=== PATIENT | male | born 1960 | race Caucasian/White ===

== ENCOUNTER 2017-04-03 05:06 | Inpatient (IN) | payer MEDICAID, OTHER ==
[2017-04-03] MEDS ORDERED: Alum Hydroxide/Mag Hydroxide 15 ML, Lidocaine 2% 15 ML PO ONE ×2 (05:44)
[2017-04-03] MEDS: Sodium Chloride 0.9% 1,000 ML IV SCH ×2 (06:07→14:16)
[2017-04-03] MEDS ORDERED: Morphine 10 MG/ML Syringe IVPUSH ONE (06:12)
[2017-04-03] MEDS ORDERED: Iopamidol 755 Mg/ML 100 ML Bottle IV ONE (06:32)
[2017-04-03] MEDS ORDERED: HYDROmorphone 2 MG/ML SDV IVPUSH ONE (06:50)
--- NOTE | 2017-04-03 08:23 | ER ---
DATE SEEN: 04/03/2017 TIME SEEN: 0500 hours. CHIEF COMPLAINT: Abdominal pain. HISTORY OF PRESENT ILLNESS: This is a 56-year-old male who presented with abdominal pain, started tonight, epigastric area, severe, constant. He admits to have been drinking last night. PAST MEDICAL HISTORY: Alcohol abuse, stroke, hypertension. SOCIAL HISTORY: Lives alone. ALLERGIES: None. PHYSICAL EXAMINATION: GENERAL: He is not in any cardiopulmonary distress. VITAL SIGNS: Temperature 97.5, pulse is 96. ENT: Negative. NECK: Supple. CHEST: Clear. ABDOMEN: Soft. Tenderness in the epigastrium was elicited. Bowel sounds are present. EXTREMITIES: No edema. LABORATORY DATA: Amylase 237. Sodium is 132, potassium is 3.3. Troponin, negative. EKG normal sinus rhythm. Alcohol is 0.05. CT of the abdomen and pelvis is pending. IMPRESSION: Acute abdominal pain. PLAN: A 1 L of normal saline was started. The patient was given 5 mg of IV morphine with no improvement. I ordered for Dilaudid [address] Barrera will take over. /[id number] AKILA/TRICIA
[2017-04-03] MEDS ORDERED: Ondansetron 4 MG/2 ML SDV IV PRN (09:13)
[2017-04-03] MEDS ORDERED: HYDROmorphone 2 MG/ML SDV IVPUSH PRN (09:13)
[2017-04-03] MEDS ORDERED: Sodium Chloride 0.9% 10 ML Syringe FLUSH PRN (09:13)
[2017-04-03] MEDS ORDERED: Lactated Ringers 1,000 ML IV SCH (09:15)
[2017-04-03] MEDS ORDERED: Magnesium Hydroxide 400 MG/5 ML Susp 30 ML Cup PO PRN (09:17)
[2017-04-03] MEDS ORDERED: FLU Vacc QS 2017-18 (36mos UP)/PF 60 MCG/0.5 ML Syringe IM ONE (10:30)
[2017-04-03] MEDS: Ferrous Sulfate 325 MG Tab PO SCH (11:31)
[2017-04-03] MEDS ORDERED: LORazepam 1 MG Tab PO SCH (11:45)
[2017-04-03] MEDS ORDERED: LORazepam 2 MG/ML MDV IV SCH (11:45)
--- NOTE | 2017-04-03 11:49 | PCM.HP ---
H&P History of Present Illness - General Date of Service: 04/03/17 Admit Problem/Dx: Admission Diagnosis/Problem Admission Diagnosis/Problem Pancreatitis Source of Information: Patient, Old Records, Provider History Limitations: Reports: No Limitations - History of Present Illness Initial Comments - Free Text/Narative: Patient is a 56-year-old male who woke up out of a sound sleep at 5 AM this morning with discomfort in the epigastrium. At first he thought it was heartburn and took Pepto-Bismol which was not helpful. Pain continued to worsen until finally he was so uncomfortable he presented to the emergency department. On evaluation he was found to have an elevated amylase, CT scan of the abdomen showed acute pancreatitis. Patient was admitted for fluids, pain control, and nothing by mouth status. 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 He did not go through any withdrawal. He tells me he had no shakes and no sweats. He does have a history of alcohol abuse has been through treatment twice. Because he knew he was working this morning, he had 2 beers last night at 10:00 to help him go to sleep and that was the first alcoholic beverages he had this week. Blood alcohol at 0400 this morning was 0.05. Onset of Symptoms: Reports: Today, Sudden Quality: Reports: Sharp, Stabbing Severity: Moderate Improves with: Reports: None Worsens with: Reports: Movement Associated Symptoms: Reports: Nausea/Vomiting Upper Abdominal Pain Score (Numeric/FACES): 4 - Related Data Allergies/Adverse Reactions: Allergies Allergy/AdvReac Type Severity Reaction Status Date / Time No Known Allergies Allergy Verified 04/03/17 09:22 Home Medications: Home Meds Lisinopril 40 mg PO DAILY 05/29/14 [History] atorvaSTATin [Lipitor] 20 mg PO BEDTIME 11/19/14 [History] Pantoprazole [ProTONIX] 40 mg PO 0600 #30 06/20/15 [Rx] Ferrous Sulfate 325 mg PO DAILY 04/03/17 [History] Past Medical History HEENT History: Reports: Cataract, Impaired Vision Cardiovascular History: Reports: High Cholesterol, Hypertension Respiratory History: Reports: COPD, SOB Gastrointestinal History: Reports: GERD, GI Bleed, Pancreatitis, Other (See Below) Other Gastrointestinal History: hx feeding tube from past CVA, is gone now. Neurological History: Reports: CVA, Other (See Below) Other Neuro History: CVA in 2010 Psychiatric History: Reports: Addiction, Other (See Below) Other Psychiatric History: ETOH addiction, has been in tx x 2. - Infectious Disease History Infectious Disease History: Reports: Chicken Pox, Measles, Mumps - Past Surgical History HEENT Surgical History: Reports: Cataract Surgery Cardiovascular Surgical History: Reports: None GI Surgical History: Reports: Colonoscopy, Hernia, Abdominal, Hernia, Inguinal Social & Family History - Family History GI: Reports: Other (See Below) (Mother and father both healthy into their 80s. from Parkinson's and Alzheimer's disease respectively. 3 healthy sisters.) - Tobacco Use Smoking Status *Q: Former Smoker Years of Tobacco use: 40 Used Tobacco, but Quit: Yes Month Tobacco Last Used: 2011 Second Hand Smoke Exposure: No - Caffeine Use Caffeine Use: Reports: Coffee - Alcohol Use Days Per Week of Alcohol Use: 7 Number of Drinks Per Day: 5 Total Drinks Per Week: 35 - Recreational Drug Use Recreational Drug Use: No H&P Review of Systems - Review of Systems: Review Of Systems: See Below General: Reports: No Symptoms HEENT: Reports: No Symptoms Pulmonary: Reports: No Symptoms Cardiovascular: Reports: No Symptoms Gastrointestinal: Reports: No Symptoms (Prior to this attack. Current symptoms as per history of present illness) Genitourinary: Reports: No Symptoms Musculoskeletal: Reports: No Symptoms Skin: Reports: No Symptoms Psychiatric: Reports: No Symptoms (Denies previous symptoms of alcohol withdrawal when he stops drinking.) Neurological: Reports: Trouble Speaking (Continues to have difficulty with speech secondary to his previous stroke.) Hematologic/Lymphatic: Reports: No Symptoms Immunologic: Reports: No Symptoms Exam - Exam Exam: See Below - Vital Signs Vital Signs: Last Vital Signs Temp 36.4 C 04/03/17 05:37 Pulse 96 04/03/17 05:37 Resp 18 04/03/17 09:00 BP 161/93 H 04/03/17 09:00 Pulse Ox 94 L 04/03/17 09:00 Weight: 94.438 kg - Exam General: Alert, Oriented, Cooperative HEENT: PERRLA, Mucosa Moist & [place] Neck: Supple Lungs: Clear to Auscultation, Normal Respiratory Effort Cardiovascular: Regular Rate, Regular Rhythm GI/Abdominal Exam: Soft, Tender (Significantly tender in the epigastrium, minimally tender elsewhere.), Abnormal Bowel Sounds (Hypoactive.) Back Exam: Normal Inspection Extremities: Normal Inspection, Normal Range of Motion (Patient notes left arm is still slightly not as easy to control as the right but on exam he appears very symmetric.) - Patient Data Result Diagrams: 04/03/17 05:50 04/03/17 05:50 *Q Meaningful Use (ADM) - VTE *Q VTE Criteria *Q: - Stroke *Q Stroke Criteria *Q: - AMI *Q AMI Criteria *Q: - Problem List (1) Acute alcoholic pancreatitis SNOMED Code(s): 460038333 ICD Code: K85.20 - ALCOHOL INDUCED ACUTE PANCREATITIS WITHOUT NECROSIS OR INFCT Status: Acute Current Visit: Yes Problem Details: [place] II score is 2, one for age and one for hypokalemia. Nothing by mouth, fluids, pain management. Monitor labs and status. (2) Alcohol abuse SNOMED Code(s): 36379906 ICD Code: F10.10 - ALCOHOL ABUSE, UNCOMPLICATED Status: Acute Current Visit: Yes Problem Details: Alcohol withdrawal protocol. Patient denies recent drinking history other than 2 beers last evening. He notes that all he's had for a week. We'll continue to monitor. If patient's tachycardia/ hypertension become elevated sufficiently to warrant treatment, would suggest using a low-dose beta allan as first line. (3) Elevated LFTs SNOMED Code(s): 780562657 ICD Code: R79.89 - OTHER SPECIFIED ABNORMAL FINDINGS OF BLOOD CHEMISTRY Status: Acute Current Visit: Yes Problem Details: Could be related to alcohol abuse. May be result of pancreatic inflammation. Cannot rule out the possibility of obstructive etiology. Will recheck tomorrow. (4) Hyponatremia SNOMED Code(s): 35572541 ICD Code: E87.1 - HYPO-OSMOLALITY AND HYPONATREMIA Status: Acute Current Visit: Yes Problem Details: Mild. Recheck tomorrow. (5) Hypokalemia SNOMED Code(s): 20715283 ICD Code: E87.6 - HYPOKALEMIA Status: Acute Current Visit: Yes Problem Details: Mild. Will use IV fluids containing potassium and recheck tomorrow. (6) DVT prophylaxis SNOMED Code(s): 506077247 ICD Code: [id number] - Status: Acute Current Visit: Yes Problem Details: Lovenox. Problem List Initiated/Reviewed/Updated: Yes Orders Last 24hrs: Active Orders 24 hr Category Date Time Status Blood Glucose Check, Bedside [RC] QIDACANDBED Care 04/03/17 09:13 Active Notify Provider [RC] PRN Care 04/03/17 11:41 Ordered Oxygen Therapy [RC] PRN Care 04/03/17 09:13 Active Oxygen Therapy [RC] PRN Care 04/03/17 09:17 Active VTE/DVT Education [RC] Per Unit Routine Care 04/03/17 09:13 Active VTE/DVT Education [RC] Per Unit Routine Care 04/03/17 09:17 Active Clear Liquid Diet [DIET] Diet 04/03/17 Breakfast Ordered CBC WITH AUTO DIFF [HEME] AM Lab 04/04/17 05:11 Ordered COMPREHENSIVE METABOLIC PN,CMP [CHEM] AM Lab 04/04/17 05:11 Ordered TROPONIN I [CHEM] Routine Lab 04/03/17 12:00 Ordered Enoxaparin [Lovenox] Med 04/03/17 09:15 Active 40 mg SUBCUT DAILY Ferrous Sulfate Med 04/03/17 09:30 Active 325 mg PO DAILY Folic Acid Med 04/04/17 09:00 Ordered 1 mg PO DAILY HYDROmorphone [Dilaudid] Med 04/03/17 09:13 Active 0.5 mg IVPUSH Q2H PRN LORazepam [Ativan] Med 04/03/17 11:45 Ordered See Protocol IV ASDIRECTED LORazepam [Ativan] Med 04/03/17 11:45 Ordered See Protocol PO ASDIRECTED Lactated Ringers [Ringers, Lactated] 1,000 ml Med 04/03/17 09:15 Active IV ASDIRECTED Lisinopril [Prinivil] Med 04/03/17 09:30 Active 40 mg PO DAILY Magnesium Hydroxide [Milk of Magnesia] Med 04/03/17 09:17 Active 30 ml PO Q12H PRN Multivitamins [Tab-A-Mei] Med 04/04/17 09:00 Ordered 1 tab PO DAILY Ondansetron [Zofran] Med 04/03/17 09:13 Active 4 mg IV Q4H PRN Pantoprazole [ProTONIX] Med 04/04/17 06:00 Active 40 mg PO 0600 Sodium Chloride 0.9% [Saline Flush] Med 04/03/17 09:13 Active 10 ml FLUSH ASDIRECTED PRN Thiamine [Vitamin B-1] 100 mg Med 04/04/17 09:00 Ordered Sodium Chloride 0.9% [Normal Saline] 50 ml IV DAILY atorvaSTATin [Lipitor] Med 04/03/17 21:00 Active 20 mg PO BEDTIME Peripheral IV Insertion Adult [OM.PC] Routine Oth 04/03/17 09:13 Ordered Resuscitation Status Routine Resus Stat 04/03/17 09:17 Ordered Medication Orders Atorvastatin Calcium (Lipitor) 20 mg PO BEDTIME [facility] Enoxaparin Sodium (Lovenox) 40 mg SUBCUT DAILY [facility] Ferrous Sulfate (Ferrous Sulfate) 325 mg PO DAILY [facility] Last Admin: 04/03/17 11:31 Dose: 325 mg Folic Acid (Folic Acid) 1 mg PO DAILY [facility] Hydromorphone HCl (Dilaudid) 0.5 mg IVPUSH Q2H PRN PRN Reason: Pain (severe 7-10) Last Admin: 04/03/17 11:31 Dose: 0.5 mg Sodium Chloride (Normal Saline) 1,000 mls @ 125 mls/hr IV ASDIRECTED [facility] Last Admin: 04/03/17 06:07 Dose: 125 mls/hr Lactated Ringer's (Ringers, Lactated) 1,000 mls @ 125 mls/hr IV ASDIRECTED [facility] Thiamine HCl 100 mg/ Sodium (Chloride) 51 mls @ 100 mls/hr IV DAILY [facility] Lisinopril (Prinivil) 40 mg PO DAILY [facility] Lorazepam (Ativan) 0 mg IV ASDIRECTED [facility] PRN Reason: Protocol Lorazepam (Ativan) 0 mg PO ASDIRECTED [facility] PRN Reason: Protocol Magnesium Hydroxide (Milk Of Magnesia) 30 ml PO Q12H PRN PRN Reason: Constipation Multivitamins/Minerals/Vitamin C (Tab-A-Mei) 1 tab PO DAILY [facility] Ondansetron HCl (Zofran) 4 mg IV Q4H PRN PRN Reason: Nausea/Vomiting Pantoprazole Sodium (Protonix) 40 mg PO 0600 [facility] Sodium Chloride (Saline Flush) 10 ml FLUSH ASDIRECTED PRN PRN Reason: Keep Vein Open Assessment/Plan Comment:: CODE STATUS discussed with the patient. He is a full code. If his heart were to stop beating. He stopped breathing, he would want every effort to resuscitate him.
[2017-04-03] MEDS ORDERED: Enoxaparin 60 MG/0.6 ML Syringe ONE (12:27)
[2017-04-03] MEDS ORDERED: Lisinopril 20 MG Tab ONE (12:28)
[2017-04-03] MEDS: Enoxaparin 40 MG/0.4 ML Syringe SUBCUT SCH (12:45)
[2017-04-03] MEDS: NS + KCl 20mEq/L 1,000 ML IV SCH (14:56)
--- NOTE | 2017-04-03 15:22 | PCM.PN ---
- General Info Date of Service: 04/03/17 Subjective Update: The patient is a 56-year-old male currently on hospital day #1 for acute pancreatitis secondary to alcohol abuse. At approximately 1434 the patient started to have left arm shaking and asked the nurse to come into the room. She came in and started to get vital signs while his arm was tremoring and this quickly proceeded into a full tonic-clonic seizure. I was called immediately with the rapid response team and we provided supportive care with blow-by oxygen while 1 mg Ativan was drawn up and given. Within 30 seconds of getting the Ativan the seizure had broken. The seizure lasted approximately 3 minutes. Oxygen saturations dipped as low as 80% during the seizure prior to oxygen supplementation but after oxygen supplementation sats were 100%. Following the seizure, the patient was disoriented but arousable. He was able to answer questions. Within 20 minutes he had regained orientation to person, place and time. Vital signs are stable although blood pressure and pulse remained elevated with heart rate in the 140s and systolic blood pressure in the 160s to 170s. Patient was transferred to ICU and placed on telemetry monitoring. On physical exam, the patient was alert, awake and in no distress. He was a little anxious. Head is atraumatic, normocephalic. Pupils are equally round and reactive. Tongue shows no lacerations. Lungs are clear to auscultation with coarse breath sounds but no wheezes rhonchi or rales. Abdomen is soft naphthalene still operator in the epigastrium, nondistended. - Patient Data Vitals - Most Recent: Last Vital Signs Temp 36.4 C 04/03/17 05:37 Pulse 96 04/03/17 05:37 Resp 18 04/03/17 09:00 BP 164/100 H 04/03/17 12:40 Pulse Ox 99 04/03/17 15:05 Weight - Most Recent: 94.438 kg I&O - Last 24 Hours: Intake & Output 04/03/17 04/03/17 04/03/17 06:59 14:59 22:59 Intake Total 1056 Balance 1056 Med Orders - Current: Current Medications Atorvastatin Calcium (Lipitor) 20 mg PO BEDTIME [facility] Enoxaparin Sodium (Lovenox) 40 mg SUBCUT DAILY [facility] Last Admin: 04/03/17 12:45 Dose: Not Given Ferrous Sulfate (Ferrous Sulfate) 325 mg PO DAILY [facility] Last Admin: 04/03/17 11:31 Dose: 325 mg Folic Acid (Folic Acid) 1 mg PO DAILY [facility] Hydromorphone HCl (Dilaudid) 0.5 mg IVPUSH Q2H PRN PRN Reason: Pain (severe 7-10) Last Admin: 04/03/17 11:31 Dose: 0.5 mg Sodium Chloride (Normal Saline) 1,000 mls @ 125 mls/hr IV ASDIRECTED [facility] Last Admin: 04/03/17 14:16 Dose: 125 mls/hr Lactated Ringer's (Ringers, Lactated) 1,000 mls @ 125 mls/hr IV ASDIRECTED [facility] Thiamine HCl 100 mg/ Sodium (Chloride) 51 mls @ 100 mls/hr IV DAILY [facility] Potassium Chloride/Sodium Chloride (Normal Saline With 20 Meq Kcl) 1,000 mls @ 75 mls/hr IV ASDIRECTED [facility] Last Admin: 04/03/17 14:56 Dose: 75 mls/hr Lisinopril (Prinivil) 40 mg PO DAILY [facility] Last Admin: 04/03/17 12:45 Dose: Not Given Lorazepam (Ativan) 0 mg IV ASDIRECTED [facility] PRN Reason: Protocol Lorazepam (Ativan) 0 mg PO ASDIRECTED [facility] PRN Reason: Protocol Magnesium Hydroxide (Milk Of Magnesia) 30 ml PO Q12H PRN PRN Reason: Constipation Multivitamins/Minerals/Vitamin C (Tab-A-Mei) 1 tab PO DAILY [facility] Ondansetron HCl (Zofran) 4 mg IV Q4H PRN PRN Reason: Nausea/Vomiting Pantoprazole Sodium (Protonix) 40 mg PO 0600 [facility] Sodium Chloride (Saline Flush) 10 ml FLUSH ASDIRECTED PRN PRN Reason: Keep Vein Open Discontinued Medications Al Hydroxide/Mg Hydroxide 15 (ml/ Lidocaine HCl 15 ml) 0 ml PO ONETIME ONE Stop: 04/03/17 05:45 Last Admin: 04/03/17 06:03 Dose: 30 ml Enoxaparin Sodium (Lovenox) Confirm Administered Dose 60 mg .ROUTE .STK-MED ONE Stop: 04/03/17 12:28 Last Admin: 04/03/17 12:39 Dose: 40 mg Hydromorphone HCl (Dilaudid) 2 mg IVPUSH ONETIME ONE Stop: 04/03/17 06:51 Last Admin: 04/03/17 07:15 Dose: 2 mg Influenza Virus Vaccine (Pharmacy To Dose - Influenza Vaccine) 1 each IM ONETIME ONE Stop: 04/03/17 10:24 Influenza Virus Vaccine (Fluzone Quad [id number]) 60 mcg IM .ONCE ONE Stop: 04/03/17 10:31 Last Admin: 04/03/17 11:32 Dose: 60 mcg Iopamidol (Isovue-370 (76%)) 100 ml IV . DIRECTED ONE Stop: 04/03/17 06:33 Last Admin: 04/03/17 06:47 Dose: 100 ml Lisinopril (Prinivil) Confirm Administered Dose 40 mg .ROUTE .STK-MED ONE Stop: 04/03/17 12:29 Last Admin: 04/03/17 12:40 Dose: 40 mg Morphine Sulfate (Morphine) 5 mg IVPUSH ONETIME ONE Stop: 04/03/17 06:13 Last Admin: 04/03/17 06:16 Dose: 5 mg - Problem List & Annotations (1) Alcohol withdrawal seizure SNOMED Code(s): 194241702 Code(s): F10.239 - ALCOHOL DEPENDENCE WITH WITHDRAWAL, UNSPECIFIED; R56.9 - UNSPECIFIED CONVULSIONS Status: Acute Current Visit: Yes Annotation/ Comment:: The patient' CIWA was quite low, his increase in blood pressure and pulse were the main indicators of withdrawal. Patient will be given another milligram of Ativan and 1 hour and then we'll monitor closely. Likely will premedicate over the next 24 hours with Ativan every 4 hours as long as patient is arousable and maintaining his respiratory status. Patient has been placed on telemetry, is in the ICU being monitored closely, seizure precautions, will watch closely for respiratory issues related to potential aspiration during seizure activity. (2) Acute alcoholic pancreatitis SNOMED Code(s): 877641100 Code(s): K85.20 - ALCOHOL INDUCED ACUTE PANCREATITIS WITHOUT NECROSIS OR INFCT Status: Acute Current Visit: Yes Annotation/Comment:: [place] II score is 2, one for age and one for hypokalemia. Nothing by mouth, fluids, pain management. Monitor labs and status. (3) Alcohol abuse SNOMED Code(s): 39363253 Code(s): F10.10 - ALCOHOL ABUSE, UNCOMPLICATED Status: Acute Current Visit: Yes Annotation/Comment:: Patient's blood alcohol this time is likely 0 given the elapsed time since his last alcohol level at 4 AM. We'll monitor closely for evidence of delirium tremens which is more common in patients who' ve had alcohol withdrawal seizures. Patient currently in ICU, seizure precautions. (4) Elevated LFTs SNOMED Code(s): 720803425 Code(s): R79.89 - OTHER SPECIFIED ABNORMAL FINDINGS OF BLOOD CHEMISTRY Status: Acute Current Visit: Yes Annotation/Comment:: Could be related to alcohol abuse. May be result of pancreatic inflammation. Cannot rule out the possibility of obstructive etiology. Will recheck tomorrow. (5) Hyponatremia SNOMED Code(s): 52620394 Code(s): E87.1 - HYPO-OSMOLALITY AND HYPONATREMIA Status: Acute Current Visit: Yes Annotation/Comment:: Mild. Recheck tomorrow. (6) Hypokalemia SNOMED Code(s): 74692969 Code(s): E87.6 - HYPOKALEMIA Status: Acute Current Visit: Yes Annotation/Comment:: Mild. Will use IV fluids containing potassium and recheck tomorrow. (7) DVT prophylaxis SNOMED Code(s): 790462363 Code(s): KNQ3394 - Status: Acute Current Visit: Yes Annotation/Comment :: Lovenox. - Problem List Review Problem List Initiated/Reviewed/Updated: Yes - My Orders Last 24 Hours: My Active Orders 04/03/17 11:41 Notify Provider [RC] PRN 04/03/17 11:45 LORazepam [Ativan] See Protocol IV ASDIRECTED LORazepam [Ativan] See Protocol PO ASDIRECTED 04/03/17 14:00 NS + KCl 20mEq/L [Normal Saline with 20 mEq KCl] 1,000 ml IV ASDIRECTED 04/03/17 14:54 Patient Status Manage Transfer [TRANSFER] Routine 04/03/17 14:58 Telemetry Monitoring [Cardiac Monitoring] [RC] .As Directed 04/04/17 09:00 Folic Acid 1 mg PO DAILY Multivitamins [Tab-A-Mei] 1 tab PO DAILY Thiamine [Vitamin B-1] 100 mg Sodium Chloride 0.9% [Normal Saline] 50 ml IV DAILY - Plan Plan:: CODE STATUS discussed with the patient. He is a full code. If his heart were to stop beating. He stopped breathing, he would want every effort to resuscitate him.
[2017-04-03] MEDS ORDERED: Folic Acid 1 MG Tab PO ONE (15:42)
[2017-04-03] MEDS ORDERED: Pantoprazole 40 MG Vial IVPUSH ONE (15:43)
[2017-04-03] MEDS ORDERED: Multivitamin Tab PO ONE (15:45)
[2017-04-03] MEDS ORDERED: LORazepam 2 MG/ML MDV IVPUSH STA (16:00)
[2017-04-03] MEDS: Thiamine 100 MG in Sodium Chloride 0.9% 50 ML IV SCH (16:12)
[2017-04-03] MEDS ORDERED: atorvaSTATin 20 MG Tab PO SCH (21:00)
[2017-04-04] MEDS: NS + KCl 20mEq/L 1,000 ML IV SCH (04:38)
[2017-04-04] MEDS: Pantoprazole 40 MG Tab.CR PO SCH (05:03)
[2017-04-04] MEDS ORDERED: LORazepam 2 MG/ML MDV IVPUSH ONE (07:21)
--- NOTE | 2017-04-04 07:36 | PCM.PN ---
- General Info Date of Service: 04/04/17 Subjective Update: The patient is a 56-year-old male currently on hospital day #2, admitted for alcoholic pancreatitis and had a seizure secondary to alcohol withdrawal yesterday about 1400. No Ativan overnight. Vital signs have been improved with blood pressure in the 150s systolic and heart rate in the 90s. Abdominal pain is much improved. Patient is awake and oriented this morning. No nausea, no vomiting, no chest pain, no shortness of breath. Has been up to the bathroom without difficulty. Functional Status: Reports: Pain Controlled - Patient Data Vitals - Most Recent: Last Vital Signs Temp 36.4 C 04/04/17 04:00 Pulse 96 04/04/17 04:59 Resp 18 04/04/17 04:00 BP 156/99 H 04/04/17 04:00 Pulse Ox 91 L 04/04/17 04:00 Weight - Most Recent: 94.438 kg I&O - Last 24 Hours: Intake & Output 04/03/17 04/04/17 04/04/17 22:59 06:59 14:59 Intake Total 441 538 Output Total 225 Balance 216 538 Lab Results Last 24 Hours: Laboratory Results - last 24 hr 04/03/17 04/03/17 04/03/17 Range/Units 11:23 17:44 20:00 POC Glucose 130 H 150 H 159 H (80-116) mg/dL 04/04/17 Range/Units 05:06 POC Glucose 126 H (80-116) mg/dL Magnesium was normal. Potassium was normal at 2.6. Patient's phosphorus was low at 2.2. White count elevated at 12,000. Creatinine normal. Med Orders - Current: Current Medications Enoxaparin Sodium (Lovenox) 40 mg SUBCUT DAILY [facility] Last Admin: 04/03/17 12:45 Dose: Not Given Ferrous Sulfate (Ferrous Sulfate) 325 mg PO DAILY [facility] Last Admin: 04/03/17 11:31 Dose: 325 mg Folic Acid (Folic Acid) 1 mg PO DAILY [facility] Hydromorphone HCl (Dilaudid) 0.5 mg IVPUSH Q2H PRN PRN Reason: Pain (severe 7-10) Last Admin: 04/03/17 11:31 Dose: 0.5 mg Sodium Chloride (Normal Saline) 1,000 mls @ 125 mls/hr IV ASDIRECTED [facility] Last Admin: 04/03/17 14:16 Dose: 125 mls/hr Potassium Chloride/Sodium Chloride (Normal Saline With 20 Meq Kcl) 1,000 mls @ 75 mls/hr IV ASDIRECTED [facility] Last Admin: 04/04/17 04:38 Dose: 75 mls/hr Thiamine HCl 100 mg/ Sodium (Chloride) 51 mls @ 100 mls/hr IV DAILY [facility] Last Admin: 04/03/17 16:12 Dose: 100 mls/hr Lisinopril (Prinivil) 40 mg PO DAILY [facility] Last Admin: 04/03/17 12:45 Dose: Not Given Lorazepam (Ativan) 0 mg IV ASDIRECTED [facility] PRN Reason: Protocol Lorazepam (Ativan) 0 mg PO ASDIRECTED [facility] PRN Reason: Protocol Last Admin: 04/03/17 17:37 Dose: 1 mg Magnesium Hydroxide (Milk Of Magnesia) 30 ml PO Q12H PRN PRN Reason: Constipation Multivitamins/Minerals/Vitamin C (Tab-A-Mei) 1 tab PO DAILY [facility] Ondansetron HCl (Zofran) 4 mg IV Q4H PRN PRN Reason: Nausea/Vomiting Last Admin: 04/03/17 17:51 Dose: 4 mg Pantoprazole Sodium (Protonix) 40 mg PO 0600 [facility] Last Admin: 04/04/17 05:03 Dose: 40 mg Sodium Chloride (Saline Flush) 10 ml FLUSH ASDIRECTED PRN PRN Reason: Keep Vein Open Discontinued Medications Atorvastatin Calcium (Lipitor) 20 mg PO BEDTIME [facility] Al Hydroxide/Mg Hydroxide 15 (ml/ Lidocaine HCl 15 ml) 0 ml PO ONETIME ONE Stop: 04/03/17 05:45 Last Admin: 04/03/17 06:03 Dose: 30 ml Enoxaparin Sodium (Lovenox) Confirm Administered Dose 60 mg .ROUTE .STK-MED ONE Stop: 04/03/17 12:28 Last Admin: 04/03/17 12:39 Dose: 40 mg Folic Acid (Folic Acid) 1 mg PO ONETIME ONE Stop: 04/03/17 15:43 Last Admin: 04/03/17 16:11 Dose: 1 mg Hydromorphone HCl (Dilaudid) 2 mg IVPUSH ONETIME ONE Stop: 04/03/17 06:51 Last Admin: 04/03/17 07:15 Dose: 2 mg Lactated Ringer's (Ringers, Lactated) 1,000 mls @ 125 mls/hr IV ASDIRECTED [facility] Thiamine HCl 100 mg/ Sodium (Chloride) 51 mls @ 100 mls/hr IV DAILY [facility] Influenza Virus Vaccine (Pharmacy To Dose - Influenza Vaccine) 1 each IM ONETIME ONE Stop: 04/03/17 10:24 Influenza Virus Vaccine (Fluzone Quad [id number]) 60 mcg IM .ONCE ONE Stop: 04/03/17 10:31 Last Admin: 04/03/17 11:32 Dose: 60 mcg Iopamidol (Isovue-370 (76%)) 100 ml IV . DIRECTED ONE Stop: 04/03/17 06:33 Last Admin: 04/03/17 06:47 Dose: 100 ml Lisinopril (Prinivil) Confirm Administered Dose 40 mg .ROUTE .STK-MED ONE Stop: 04/03/17 12:29 Last Admin: 04/03/17 12:40 Dose: 40 mg Lorazepam (Ativan) 1 mg IVPUSH NOW STA Stop: 04/03/17 16:01 Last Admin: 04/03/17 16:30 Dose: 1 mg Lorazepam (Ativan) 0.5 mg IVPUSH ONETIME ONE Stop: 04/04/17 07:22 Morphine Sulfate (Morphine) 5 mg IVPUSH ONETIME ONE Stop: 04/03/17 06:13 Last Admin: 04/03/17 06:16 Dose: 5 mg Multivitamins/Minerals/Vitamin C (Tab-A-Mei) 1 tab PO ONETIME ONE Stop: 04/03/17 15:46 Last Admin: 04/03/17 16:29 Dose: 1 tab Pantoprazole Sodium (Protonix Iv) 40 mg IVPUSH ONETIME ONE Stop: 04/03/17 15:44 Last Admin: 04/03/17 16:11 Dose: 40 mg - Exam Quality Assessment: DVT Prophylaxis General: Alert, Oriented, Cooperative HEENT: Pupils Equal, Pupils Reactive Neck: Supple Lungs: Clear to Auscultation, Normal Respiratory Effort Cardiovascular: Regular Rate, Regular Rhythm, No Murmurs GI/Abdominal Exam: Normal Bowel Sounds, Soft, Tender (Tender in the epigastrium but much less so than yesterday.) Back Exam: Normal Inspection Extremities: Normal Inspection, Normal Range of Motion, No Pedal Edema Skin: Warm, Dry, Intact Neurological: No New Focal Deficit Psy/Mental Status: Alert, Normal Mood - Problem List & Annotations (1) Alcohol withdrawal seizure SNOMED Code(s): 593448429 Code(s): F10.239 - ALCOHOL DEPENDENCE WITH WITHDRAWAL, UNSPECIFIED; R56.9 - UNSPECIFIED CONVULSIONS Status: Acute Current Visit: Yes Annotation/ Comment:: No further seizure activity. Patient appears quite stable this morning. I did ask nursing to give him a 0.5 mg Ativan dose this morning since he's had no Ativan since last evening. If he shows no further symptoms of withdrawal will not give anymore Ativan as he's out of the 24-hour window where seizures are most common. (2) Acute alcoholic pancreatitis SNOMED Code(s): 739092949 Code(s): K85.20 - ALCOHOL INDUCED ACUTE PANCREATITIS WITHOUT NECROSIS OR INFCT Status: Acute Current Visit: Yes Annotation/Comment:: Patient tolerating clear liquids this morning. Recommend that we stay clear liquids today. If he tolerates this well he can advance diet and discharge home tomorrow. We'll likely be able to discharge from ICU to general medical floor later today. (3) Alcohol abuse SNOMED Code(s): 64823852 Code(s): F10.10 - ALCOHOL ABUSE, UNCOMPLICATED Status: Acute Current Visit: Yes Annotation/Comment:: No evidence of delirium tremens at this time. We will offer referral for treatment. (4) Elevated LFTs SNOMED Code(s): 668267289 Code(s): R79.89 - OTHER SPECIFIED ABNORMAL FINDINGS OF BLOOD CHEMISTRY Status: Acute Current Visit: Yes Annotation/Comment:: improving, continue to monitor. (5) Hyponatremia SNOMED Code(s): 90615484 Code(s): E87.1 - HYPO-OSMOLALITY AND HYPONATREMIA Status: Acute Current Visit: Yes Annotation/Comment:: Sodium 130 today. Continue to monitor. (6) Hypokalemia SNOMED Code(s): 16685808 Code(s): E87.6 - HYPOKALEMIA Status: Acute Current Visit: Yes Annotation/Comment:: Mild. Will use IV fluids containing potassium and recheck tomorrow. (7) DVT prophylaxis SNOMED Code(s): 817833337 Code(s): RBG4089 - Status: Acute Current Visit: Yes Annotation/Comment :: Wilbertx. (8) Hypophosphatemia SNOMED Code(s): 3141574 Code(s): E83.39 - OTHER DISORDERS OF PHOSPHORUS METABOLISM Status: Acute Current Visit: Yes Annotation/Comment:: Replace orally, recheck tomorrow. - Problem List Review Problem List Initiated/Reviewed/Updated: Yes - My Orders Last 24 Hours: My Active Orders 04/03/17 11:41 Notify Provider [RC] PRN 04/03/17 11:45 LORazepam [Ativan] See Protocol IV ASDIRECTED LORazepam [Ativan] See Protocol PO ASDIRECTED 04/03/17 14:00 NS + KCl 20mEq/L [Normal Saline with 20 mEq KCl] 1,000 ml IV ASDIRECTED 04/03/17 14:58 Telemetry Monitoring [Cardiac Monitoring] [RC] Q8H 04/03/17 15:32 Seizure Precautions [OM.PC] Routine 04/03/17 15:45 Thiamine [Vitamin B-1] 100 mg Sodium Chloride 0.9% [Normal Saline] 50 ml IV DAILY 04/04/17 07:30 MAGNESIUM [CHEM] Routine PHOSPHORUS [CHEM] Routine 04/04/17 09:00 Folic Acid 1 mg PO DAILY Multivitamins [Tab-A-Mei] 1 tab PO DAILY - Plan Plan:: CODE STATUS discussed with the patient. He is a full code. If his heart were to stop beating. He stopped breathing, he would want every effort to resuscitate him.
[2017-04-04] MEDS ORDERED: Thiamine 100 MG in Sodium Chloride 0.9% 50 ML IV SCH (09:00)
[2017-04-04] MEDS ORDERED: Potassium Phosphate,Mb-Db/Sodium Phosphate,Mb-Db Packet PO SCH (09:15)
[2017-04-04] MEDS: Multivitamin Tab PO SCH (09:21)
[2017-04-04] MEDS: Ferrous Sulfate 325 MG Tab PO SCH (09:21)
[2017-04-04] MEDS: Folic Acid 1 MG Tab PO SCH (09:21)
[2017-04-04] MEDS: Enoxaparin 40 MG/0.4 ML Syringe SUBCUT SCH (09:21)
[2017-04-04] MEDS: Thiamine 100 MG in Sodium Chloride 0.9% 50 ML IV SCH (09:24)
[2017-04-04] MEDS: Sodium Chloride 0.9% 1,000 ML IV SCH (09:30)
[2017-04-04] MEDS: Potassium Phosphate,Mb-Db/Sodium Phosphate,Mb-Db Packet PO SCH ×4 (12:17→21:09)
[2017-04-05] MEDS: Pantoprazole 40 MG Tab.CR PO SCH (06:11)
[2017-04-05] MEDS: Sodium Chloride 0.9% 1,000 ML IV SCH (08:17)
--- NOTE | 2017-04-05 08:47 | ER ---
DATE SEEN: 04/03/2017 HISTORY OF PRESENT ILLNESS: Dr. Emmanuel has worked up the patient, seen the patient, noted he has pancreatitis. CT scan is pending. Results of the CT scan demonstrate peripancreatic fat stranding and fluid extending from the tail to the head with stranding and fluid adjacent to the second portion of the duodenum. Diagnosed as pancreatitis. He also has mild hepatomegaly with steatosis. The patient to be admitted to Dr. Delgado's service. We will proceed with IV therapy. PHYSICAL EXAMINATION: The patient is in moderate discomfort in midepigastrium. He has a lengthy searching for answers. When I asked him questions, he looks at the ceiling and stares intently and then takes a while and almost a minute to deliberate and answers. When I asked how many he drank, he said he drank 2 beers last night. Either, 1) He has serious pancreatitis that does not take very much to cause a flare in his pancreas, or 2) He is drinking more than he confesses to. It is probably a combination of confounding factors. The patient will be admitted to Dr. Delgado's service. He had received Dilaudid dose from Dr. Emmanuel and his pain is slowly coming back approximately an hour after he had this dose. So, he will need Dilaudid and appropriate nutritional support and gradual alimentation to stabilize his pancreatitis. An NG tube was not placed. No suggestion of small bowel obstruction. /[id number] MARJAN/TRICIA
--- NOTE | 2017-04-05 09:17 | PCM.PN ---
- General Info Date of Service: 04/05/17 Subjective Update: Patient is a 56-year-old male currently on hospital day #3 for alcoholic pancreatitis and one withdrawal seizure. Patient was stable overnight. Has not required any Ativan since yesterday. Blood pressure has normalized into the 120s to 130s for the most part. Heart rate with activity tachs up into the 1 teens but otherwise has been around 100. Patient has had no nausea or vomiting. He's been tolerating clear liquids well. He still feels a moderate tightness in his abdomen but it doesn't really hurt. We discussed his alcohol abuse today and talked about treatment options. He is willing to consider outpatient. He has been to AA in the past and will consider this again. Denies chest pain, shortness of breath, no diarrhea. Doesn't hurt anywhere at this time. - Patient Data Vitals - Most Recent: Last Vital Signs Temp 36.6 C 04/05/17 08:00 Pulse 110 H 04/05/17 03:56 Resp 26 H 04/05/17 08:00 BP 137/96 H 04/05/17 08:00 Pulse Ox 92 L 04/05/17 08:00 Weight - Most Recent: 94.438 kg I&O - Last 24 Hours: Intake & Output 04/04/17 04/05/17 04/05/17 22:59 06:59 14:59 Intake Total 385 760 300 Output Total 500 Balance 385 260 300 Lab Results Last 24 Hours: Laboratory Results - last 24 hr 04/04/17 04/04/17 04/04/17 Range/Units 12:11 17:59 21:09 WBC (4.5-12.0) X10-3/uL RBC (4.30-5.75) x10(6)uL Hgb (11.5-15.5) g/dL Hct (30.0-51.3) % MCV (80-96) fL MCH (27.7-33.6) pg MCHC (32.2-35.4) g/dL RDW (11.5-15.5) % Plt Count (125-369) X10(3)uL MPV (7.4-10.4) fL Add Manual Diff Neutrophils % (Manual) (46-82) % Band Neutrophils % (0-6) % Lymphocytes % (Manual) (13-37) % Monocytes % (Manual) (4-12) % Sodium (135-145) mmol/L Potassium (3.5-5.3) mmol/L Chloride (100-110) mmol/L Carbon Dioxide (23-29) mmol/L BUN (5-20) mg/dL Creatinine (0.6-1.3) mg/dL Est Cr Clr Drug Dosing mL/min Estimated GFR (MDRD) (>60) BUN/Creatinine Ratio (9-20) Glucose (80-116) mg/dL POC Glucose 126 H 140 H 131 H (80-116) mg/dL Calcium (8.6-10.2) mg/dL Phosphorus (3.0-4.6) mg/dL Magnesium (1.8-2.5) mg/dL Total Bilirubin (0.1-1.3) mg/dL AST (5-27) IU/L ALT (14-26) IU/L Alkaline Phosphatase (56-112) IU/L Total Protein (6.0-8.0) g/dL Albumin (3.5-5.2) g/dL Globulin g/dL Albumin/Globulin Ratio 04/05/17 04/05/17 Range/Units 06:18 06:18 WBC 12.0 (4.5-12.0) X10-3/uL RBC 4.71 (4.30-5.75) x10(6)uL Hgb 14.9 (11.5-15.5) g/dL Hct 43.3 (30.0-51.3) % MCV 92.0 (80-96) fL MCH 31.6 (27.7-33.6) pg MCHC 34.4 (32.2-35.4) g/dL RDW 13.0 (11.5-15.5) % Plt Count 180 (125-369) X10(3)uL MPV 7.9 (7.4-10.4) fL Add Manual Diff Yes Neutrophils % (Manual) 89 H (46-82) % Band Neutrophils % 3 (0-6) % Lymphocytes % (Manual) 5 L (13-37) % Monocytes % (Manual) 3 L (4-12) % Sodium 134 L (135-145) mmol/L Potassium 3.5 (3.5-5.3) mmol/L Chloride 99 L (100-110) mmol/L Carbon Dioxide 22 L (23-29) mmol/L BUN 17 (5-20) mg/dL Creatinine 1.1 (0.6-1.3) mg/dL Est Cr Clr Drug Dosing 80.81 mL/min Estimated GFR (MDRD) > 60 (>60) BUN/Creatinine Ratio 15.5 (9-20) Glucose 141 H (80-116) mg/dL POC Glucose (80-116) mg/dL Calcium 8.1 L (8.6-10.2) mg/dL Phosphorus 2.4 L (3.0-4.6) mg/dL Magnesium 2.0 (1.8-2.5) mg/dL Total Bilirubin 1.6 H (0.1-1.3) mg/dL AST 60 H D (5-27) IU/L ALT 43 H D (14-26) IU/L Alkaline Phosphatase 64 (56-112) IU/L Total Protein 7.2 (6.0-8.0) g/dL Albumin 3.2 L (3.5-5.2) g/dL Globulin 4.0 g/dL Albumin/Globulin Ratio 0.8 Med Orders - Current: Current Medications Enoxaparin Sodium (Lovenox) 40 mg SUBCUT DAILY [facility] Last Admin: 04/04/17 09:21 Dose: 40 mg Ferrous Sulfate (Ferrous Sulfate) 325 mg PO DAILY [facility] Last Admin: 04/04/17 09:21 Dose: 325 mg Folic Acid (Folic Acid) 1 mg PO DAILY [facility] Last Admin: 04/04/17 09:21 Dose: 1 mg Hydromorphone HCl (Dilaudid) 0.5 mg IVPUSH Q2H PRN PRN Reason: Pain (severe 7-10) Last Admin: 04/03/17 11:31 Dose: 0.5 mg Sodium Chloride (Normal Saline) 1,000 mls @ 125 mls/hr IV ASDIRECTED [facility] Last Admin: 04/03/17 14:16 Dose: 125 mls/hr Sodium Chloride (Normal Saline) 1,000 mls @ 50 mls/hr IV ASDIRECTED [facility] Last Admin: 04/05/17 08:17 Dose: 50 mls/hr Thiamine HCl 100 mg/ Sodium (Chloride) 51 mls @ 100 mls/hr IV DAILY [facility] Lisinopril (Prinivil) 40 mg PO DAILY [facility] Last Admin: 04/04/17 09:21 Dose: 40 mg Lorazepam (Ativan) 0 mg IV ASDIRECTED [facility] PRN Reason: Protocol Lorazepam (Ativan) 0 mg PO ASDIRECTED [facility] PRN Reason: Protocol Last Admin: 04/03/17 17:37 Dose: 1 mg Magnesium Hydroxide (Milk Of Magnesia) 30 ml PO Q12H PRN PRN Reason: Constipation Multivitamins/Minerals/Vitamin C (Tab-A-Mei) 1 tab PO DAILY [facility] Last Admin: 04/04/17 09:21 Dose: 1 tab Ondansetron HCl (Zofran) 4 mg IV Q4H PRN PRN Reason: Nausea/Vomiting Last Admin: 04/03/17 17:51 Dose: 4 mg Pantoprazole Sodium (Protonix) 40 mg PO 0600 [facility] Last Admin: 04/05/17 06:11 Dose: 40 mg Discontinued Medications Atorvastatin Calcium (Lipitor) 20 mg PO BEDTIME [facility] Al Hydroxide/Mg Hydroxide 15 (ml/ Lidocaine HCl 15 ml) 0 ml PO ONETIME ONE Stop: 04/03/17 05:45 Last Admin: 04/03/17 06:03 Dose: 30 ml Enoxaparin Sodium (Lovenox) Confirm Administered Dose 60 mg .ROUTE .STK-MED ONE Stop: 04/03/17 12:28 Last Admin: 04/03/17 12:39 Dose: 40 mg Folic Acid (Folic Acid) 1 mg PO ONETIME ONE Stop: 04/03/17 15:43 Last Admin: 04/03/17 16:11 Dose: 1 mg Hydromorphone HCl (Dilaudid) 2 mg IVPUSH ONETIME ONE Stop: 04/03/17 06:51 Last Admin: 04/03/17 07:15 Dose: 2 mg Lactated Ringer's (Ringers, Lactated) 1,000 mls @ 125 mls/hr IV ASDIRECTED [facility] Thiamine HCl 100 mg/ Sodium (Chloride) 51 mls @ 100 mls/hr IV DAILY [facility] Potassium Chloride/Sodium Chloride (Normal Saline With 20 Meq Kcl) 1,000 mls @ 75 mls/hr IV ASDIRECTED [facility] Last Admin: 04/04/17 04:38 Dose: 75 mls/hr Thiamine HCl 100 mg/ Sodium (Chloride) 51 mls @ 100 mls/hr IV DAILY [facility] Last Admin: 04/04/17 09:24 Dose: 100 mls/hr Influenza Virus Vaccine (Pharmacy To Dose - Influenza Vaccine) 1 each IM ONETIME ONE Stop: 04/03/17 10:24 Influenza Virus Vaccine (Fluzone Quad [id number]) 60 mcg IM .ONCE ONE Stop: 04/03/17 10:31 Last Admin: 04/03/17 11:32 Dose: 60 mcg Iopamidol (Isovue-370 (76%)) 100 ml IV . DIRECTED ONE Stop: 04/03/17 06:33 Last Admin: 04/03/17 06:47 Dose: 100 ml Lisinopril (Prinivil) Confirm Administered Dose 40 mg .ROUTE .STK-MED ONE Stop: 04/03/17 12:29 Last Admin: 04/03/17 12:40 Dose: 40 mg Lorazepam (Ativan) 1 mg IVPUSH NOW STA Stop: 04/03/17 16:01 Last Admin: 04/03/17 16:30 Dose: 1 mg Lorazepam (Ativan) 0.5 mg IVPUSH ONETIME ONE Stop: 04/04/17 07:22 Last Admin: 04/04/17 08:12 Dose: 0.5 mg Morphine Sulfate (Morphine) 5 mg IVPUSH ONETIME ONE Stop: 04/03/17 06:13 Last Admin: 04/03/17 06:16 Dose: 5 mg Multivitamins/Minerals/Vitamin C (Tab-A-Mei) 1 tab PO ONETIME ONE Stop: 04/03/17 15:46 Last Admin: 04/03/17 16:29 Dose: 1 tab Pantoprazole Sodium (Protonix Iv) 40 mg IVPUSH ONETIME ONE Stop: 04/03/17 15:44 Last Admin: 04/03/17 16:11 Dose: 40 mg Potassium Phos/Sodium Phos (Phos-Nak Powder) 3 each PO QID [facility] Stop: 04/04/17 21:01 Last Admin: 04/04/17 21:09 Dose: 3 packet Sodium Chloride (Saline Flush) 10 ml FLUSH ASDIRECTED PRN PRN Reason: Keep Vein Open - Exam General: Alert, Oriented HEENT: Pupils Equal, Pupils Reactive Neck: Supple Lungs: Clear to Auscultation, Normal Respiratory Effort Cardiovascular: Regular Rate, Regular Rhythm, No Murmurs GI/Abdominal Exam: Normal Bowel Sounds, Soft, Distended, Tender (Tender throughout the upper abdomen and over the liver.) Back Exam: Normal Inspection Extremities: Normal Inspection, No Pedal Edema Psy/Mental Status: Alert, Normal Affect, Normal Mood - Problem List & Annotations (1) Alcohol withdrawal seizure SNOMED Code(s): 975226595 Code(s): F10.239 - ALCOHOL DEPENDENCE WITH WITHDRAWAL, UNSPECIFIED; R56.9 - UNSPECIFIED CONVULSIONS Status: Acute Current Visit: Yes Annotation/ Comment:: No further seizure activity since the one isolated withdrawal seizure. Patient is a [place] resident and they require a statement with a loss of consciousness or seizure to be sent to the [facility] so I will complete this. The patient would not be expected to have any further seizure activity unless he resumes drinking and again go through withdrawal. (2) Acute alcoholic pancreatitis SNOMED Code(s): 331435636 Code(s): K85.20 - ALCOHOL INDUCED ACUTE PANCREATITIS WITHOUT NECROSIS OR INFCT Status: Acute Current Visit: Yes Annotation/Comment:: Patient is tolerating clear liquids, is a fullness and discomfort in his abdomen and that coupled with the increase in his bilirubin indicates the possibility of obstruction. I'm going to get an ultrasound this morning to evaluate his common bile duct and gallbladder. Patient will be nothing by mouth until then. (3) Alcohol abuse SNOMED Code(s): 52624321 Code(s): F10.10 - ALCOHOL ABUSE, UNCOMPLICATED Status: Acute Current Visit: Yes Annotation/Comment:: Discussed inpatient, outpatient or AA treatment. Patient is amenable to outpatient treatment. (4) Elevated LFTs SNOMED Code(s): 764695835 Code(s): R79.89 - OTHER SPECIFIED ABNORMAL FINDINGS OF BLOOD CHEMISTRY Status: Acute Current Visit: Yes Annotation/Comment:: No change today and Tbili is slightly elevated. Check Abd US to rule out gallstone/obstruction. (5) Hyponatremia SNOMED Code(s): 43369693 Code(s): E87.1 - HYPO-OSMOLALITY AND HYPONATREMIA Status: Acute Current Visit: Yes Annotation/Comment:: Sodium 134 today. Continue to monitor. (6) Hypokalemia SNOMED Code(s): 94570711 Code(s): E87.6 - HYPOKALEMIA Status: Acute Current Visit: Yes Annotation/Comment:: WNL. (7) DVT prophylaxis SNOMED Code(s): 959737982 Code(s): MNV6121 - Status: Acute Current Visit: Yes Annotation/Comment :: Lovenox. (8) Hypophosphatemia SNOMED Code(s): 7656316 Code(s): E83.39 - OTHER DISORDERS OF PHOSPHORUS METABOLISM Status: Acute Current Visit: Yes Annotation/Comment:: Still low but slightly improved, follow. Once patient is eating, can have dairy for natural source. - Problem List Review Problem List Initiated/Reviewed/Updated: Yes - My Orders Last 24 Hours: My Active Orders 04/04/17 09:00 Folic Acid 1 mg PO DAILY Multivitamins [Tab-A-Mei] 1 tab PO DAILY 04/04/17 09:30 Sodium Chloride 0.9% [Normal Saline] 1,000 ml IV ASDIRECTED 04/04/17 18:02 Activity as Tolerated [RC] 08,16,00 Ambulate [RC] ASDIRECTED 04/05/17 09:00 Thiamine [Vitamin B-1] 100 mg Sodium Chloride 0.9% [Normal Saline] 50 ml IV DAILY - Plan Plan:: CODE STATUS discussed with the patient. He is a full code. If his heart were to stop beating. He stopped breathing, he would want every effort to resuscitate him.
[2017-04-05] MEDS: Thiamine 100 MG in Sodium Chloride 0.9% 50 ML IV SCH (09:22)
[2017-04-05] MEDS: Multivitamin Tab PO SCH (10:36)
[2017-04-05] MEDS: Ferrous Sulfate 325 MG Tab PO SCH (10:36)
[2017-04-05] MEDS: Folic Acid 1 MG Tab PO SCH (10:36)
[2017-04-05] MEDS: Enoxaparin 40 MG/0.4 ML Syringe SUBCUT SCH (10:36)
--- NOTE | 2017-04-05 14:34 | US ---
INDICATION: Increased bilirubin, right upper quadrant pain. RIGHT UPPER QUADRANT/GALLBLADDER ULTRASOUND: Multiple ultrasonic images were obtained 04/05/2017 and revealed the gallbladder to measure 8.1 x 3.4 x 4.3 cm, without evidence of wall thickening or calculi, or positive ultrasonic Alaniz sign. No pericholecystic fluid, wall thickening, gallstones, or sludge were seen. The common bile duct appeared normal in caliber at 4.9 mm. The liver was coarse in echogenicity and difficult to penetrate and its relatively hyperechoic appearance suggests fatty infiltration. This should be correlated clinically. The right kidney was not well seen, appearing grossly normal as visualized. The pancreas and aorta were not evaluated. The IVC was not seen. A large amount of intestinal gas apparently is present, limiting visualization. IMPRESSION: 1. Echogenic liver, most likely on the basis of fatty infiltration, but should be correlated clinically. Cirrhosis could also be present. 2. No gallstones identified. Negative ultrasonic Alaniz sign. 3. Limited visualization of the IVC, aorta, and pancreas. MTDD
[2017-04-06] MEDS: Pantoprazole 40 MG Tab.CR PO SCH (06:20)
[2017-04-06] MEDS: Ferrous Sulfate 325 MG Tab PO SCH (08:50)
[2017-04-06] MEDS: Folic Acid 1 MG Tab PO SCH (08:51)
[2017-04-06] MEDS: Enoxaparin 40 MG/0.4 ML Syringe SUBCUT SCH (08:51)
[2017-04-06] MEDS: Multivitamin Tab PO SCH (08:51)
[2017-04-06] MEDS: Thiamine 100 MG in Sodium Chloride 0.9% 50 ML IV SCH (08:57)
--- NOTE | 2017-04-06 10:47 | PCM.DCSUM1 ---
Discharge Summary - Hospital Course Free Text/Narrative:: Admission Dx: 1. Acute alcoholic pancreatitis. 2. Acute alcoholism. Discharge Dx: 1. Acute alcoholic pancreatitis. 2. Alcohol withdrawal with withdrawal seizure. 3. Need for outpatient treatment of chronic alcoholism. Consults: SS for CD outpatient treatment. Procedures: CT abd showed pancreatitis on admission. US done for slightly increased LFTs and tbili showed no obstruction. Brief History: Patient is a 56-year-old male who presented on the day of admission with acute epigastric pain. Found on CT scan to have acute pancreatitis. Was admitted for treatment of pain and fluid resuscitation. His pancreatitis was mild, within 2 hours of admission he had an alcohol withdrawal seizure. This was treated with Ativan IV. He then was transferred to ICU status and monitored for the next 24 hours for further seizure activity or symptoms of withdrawal. He had no further symptoms of seizure activity and withdrawal symptoms are controlled with IV Ativan. The patient did well. Diet was able to be advanced as tolerated and the day of discharge she was eating a full diet. He did have an ultrasound done because of an increase in his LFTs and total bili to rule out obstruction and there was no evidence of blockage of the common bile duct or gallstones. T bili at discharge was 1.8. This should be followed up in the outpatient setting. At the time of discharge, patient continued to be somewhat hypertensive intermittently but vital signs were otherwise stable. Occasional tachycardia up into the 110s. Denied chest pain, shortness of breath, nausea, vomiting, abdominal pain, diarrhea. Physical exam : Head is atraumatic, normocephalic. Speech is slurred due to previous stroke. Lungs are clear to auscultation, heart tones regular with normal rate and rhythm. No murmurs. Abdomen is soft, minimally tender in epigastrium, nondistended. Bowel sounds are active. No pedal edema. - Discharge Data Discharge Date: 04/06/17 Discharge Disposition: Home, Self-Care 01 Condition: Fair - Discharge Diagnosis/Problem(s) (1) Alcohol withdrawal seizure SNOMED Code(s): 627823480 ICD Code: F10.239 - ALCOHOL DEPENDENCE WITH WITHDRAWAL, UNSPECIFIED; R56.9 - UNSPECIFIED CONVULSIONS Status: Acute Current Visit: Yes Problem Details: No further seizure activity since the one isolated withdrawal seizure. Patient is a [place] resident and they require a statement with a loss of consciousness or seizure to be sent to the [place] Department of [employer] so this was faxed today. The patient would not be expected to have any further seizure activity unless he resumes drinking and again go through withdrawal. (2) Acute alcoholic pancreatitis SNOMED Code(s): 865666841 ICD Code: K85.20 - ALCOHOL INDUCED ACUTE PANCREATITIS WITHOUT NECROSIS OR INFCT Status: Acute Current Visit: Yes Problem Details: Tolerating full diet. Ready for discharge. Advised to abstain completely from alcohol. (3) Alcohol abuse SNOMED Code(s): 65361557 ICD Code: F10.10 - ALCOHOL ABUSE, UNCOMPLICATED Status: Acute Current Visit: Yes Problem Details: Discussed inpatient, outpatient or AA treatment. Patient is amenable to outpatient treatment. Referred to [facility]. (4) Elevated LFTs SNOMED Code(s): 934017266 ICD Code: R79.89 - OTHER SPECIFIED ABNORMAL FINDINGS OF BLOOD CHEMISTRY Status: Acute Current Visit: Yes Problem Details: Tbili and LFTs still slightly elevated. Negative US for obstruction. Follow up with PCP for recheck. (5) Hyponatremia SNOMED Code(s): 56736932 ICD Code: E87.1 - HYPO-OSMOLALITY AND HYPONATREMIA Status: Acute Current Visit: Yes Problem Details: Stable, follow up outpatient. (6) Hypokalemia SNOMED Code(s): 07496365 ICD Code: E87.6 - HYPOKALEMIA Status: Acute Current Visit: Yes Problem Details: Stable, follow up outpatient. (7) DVT prophylaxis SNOMED Code(s): 973227792 ICD Code: [id number] - Status: Acute Current Visit: Yes Problem Details: Lovenox. (8) Hypophosphatemia SNOMED Code(s): 9441612 ICD Code: E83.39 - OTHER DISORDERS OF PHOSPHORUS METABOLISM Status: Acute Current Visit: Yes Problem Details: Stable. - Patient Summary/Data Consults: Consultations 04/06/17 07:43 Consult for Substance Abuse [CONS] Routine Consult to Correspondent [CONS] Routine Comment: Physician Instructions: - Patient Instructions Diet: Heart Healthy Diet, Low Sodium, No Alcoholic Beverages Activity: As Tolerated (No driving.), Cough & Deep Breathe Driving: Do Not Drive Notify Provider of: Fever, Increased Pain, Nausea and/or Vomiting - Discharge Plan Home Medications: Home Meds Lisinopril 40 mg PO DAILY 05/29/14 [History] atorvaSTATin [Lipitor] 20 mg PO BEDTIME 11/19/14 [History] Pantoprazole [ProTONIX] 40 mg PO 0600 #30 06/20/15 [Rx] Ferrous Sulfate 325 mg PO DAILY 04/03/17 [History] Forms: ED Department Discharge Referrals: PCP,None [Primary Care Provider] - - Discharge Summary/Plan Comment DC Time >30 min.: Yes Discharge Summary/Plan Comment: Patient referred for outpatient treatment. County notified. - Patient Data Vitals - Most Recent: Last Vital Signs Temp 37.6 C 04/06/17 03:00 Pulse 89 04/06/17 06:30 Resp 18 04/06/17 06:30 BP 114/70 04/06/17 03:00 Pulse Ox 90 L 04/06/17 03:00 Weight - Most Recent: 94.438 kg Lab Results - Last 24 hrs: Laboratory Results - last 24 hr 04/06/17 04/06/17 Range/Units 07:25 07:25 WBC 9.3 (4.5-12.0) X10-3/uL RBC 4.01 L (4.30-5.75) x10(6)uL Hgb 12.5 (11.5-15.5) g/dL Hct 37.3 (30.0-51.3) % MCV 92.9 (80-96) fL MCH 31.3 (27.7-33.6) pg MCHC 33.7 (32.2-35.4) g/dL RDW 12.9 (11.5-15.5) % Plt Count 164 (125-369) X10(3)uL MPV 7.9 (7.4-10.4) fL Neut % (Auto) 82.7 H (46-82) % Lymph % (Auto) 6.3 L (13-37) % [place] % (Auto) 9.0 (4-12) % Eos % (Auto) 0 L (1.0-5.0) % Baso % (Auto) 2 (0-2) % Neut # (Auto) 7.7 (1.6-8.3) # Lymph # (Auto) 0.6 (0.6-5.0) # [place] # (Auto) 0.8 (0.0-1.3) # Eos # (Auto) 0.0 (0.0-0.8) # Baso # (Auto) 0.2 (0.0-0.2) # Sodium 130 L (135-145) mmol/L Potassium 3.3 L (3.5-5.3) mmol/L Chloride 98 L (100-110) mmol/L Carbon Dioxide 26 (23-29) mmol/L BUN 19 (5-20) mg/dL Creatinine 0.9 (0.6-1.3) mg/dL Est Cr Clr Drug Dosing 98.77 mL/min Estimated GFR (MDRD) > 60 (>60) BUN/Creatinine Ratio 21.1 H (9-20) Glucose 127 H (80-116) mg/dL Calcium 7.4 L (8.6-10.2) mg/dL Total Bilirubin 1.8 H (0.1-1.3) mg/dL AST 50 H D (5-27) IU/L ALT 34 H D (14-26) IU/L Alkaline Phosphatase 54 L (56-112) IU/L Total Protein 6.3 (6.0-8.0) g/dL Albumin 2.6 L (3.5-5.2) g/dL Globulin 3.7 g/dL Albumin/Globulin Ratio 0.7 Med Orders - Current: Current Medications Enoxaparin Sodium (Lovenox) 40 mg SUBCUT DAILY [facility] Last Admin: 04/06/17 08:51 Dose: 40 mg Ferrous Sulfate (Ferrous Sulfate) 325 mg PO DAILY [facility] Last Admin: 04/06/17 08:50 Dose: 325 mg Folic Acid (Folic Acid) 1 mg PO DAILY [facility] Last Admin: 04/06/17 08:51 Dose: 1 mg Hydromorphone HCl (Dilaudid) 0.5 mg IVPUSH Q2H PRN PRN Reason: Pain (severe 7-10) Last Admin: 04/03/17 11:31 Dose: 0.5 mg Thiamine HCl 100 mg/ Sodium (Chloride) 51 mls @ 100 mls/hr IV DAILY [facility] Last Admin: 04/06/17 08:57 Dose: 100 mls/hr Lisinopril (Prinivil) 40 mg PO DAILY [facility] Last Admin: 04/06/17 08:51 Dose: 40 mg Lorazepam (Ativan) 0 mg IV ASDIRECTED MARSHA PRN Reason: Protocol Last Admin: 04/03/17 14:39 Dose: 1 mg Lorazepam (Ativan) 0 mg PO ASDIRECTED MARSHA PRN Reason: Protocol Last Admin: 04/03/17 17:37 Dose: 1 mg Magnesium Hydroxide (Milk Of Magnesia) 30 ml PO Q12H PRN PRN Reason: Constipation Multivitamins/Minerals/Vitamin C (Tab-A-Mei) 1 tab PO DAILY [facility] Last Admin: 04/06/17 08:51 Dose: 1 tab Ondansetron HCl (Zofran) 4 mg IV Q4H PRN PRN Reason: Nausea/Vomiting Last Admin: 04/03/17 17:51 Dose: 4 mg Pantoprazole Sodium (Protonix) 40 mg PO 0600 [facility] Last Admin: 04/06/17 06:20 Dose: 40 mg Discontinued Medications Atorvastatin Calcium (Lipitor) 20 mg PO BEDTIME MARSHA Al Hydroxide/Mg Hydroxide 15 (ml/ Lidocaine HCl 15 ml) 0 ml PO ONETIME ONE Stop: 04/03/17 05:45 Last Admin: 04/03/17 06:03 Dose: 30 ml Enoxaparin Sodium (Lovenox) Confirm Administered Dose 60 mg .ROUTE .STK-MED ONE Stop: 04/03/17 12:28 Last Admin: 04/03/17 12:39 Dose: 40 mg Folic Acid (Folic Acid) 1 mg PO ONETIME ONE Stop: 04/03/17 15:43 Last Admin: 04/03/17 16:11 Dose: 1 mg Hydromorphone HCl (Dilaudid) 2 mg IVPUSH ONETIME ONE Stop: 04/03/17 06:51 Last Admin: 04/03/17 07:15 Dose: 2 mg Sodium Chloride (Normal Saline) 1,000 mls @ 125 mls/hr IV ASDIRECTED [facility] Last Admin: 04/03/17 14:16 Dose: 125 mls/hr Lactated Ringer's (Ringers, Lactated) 1,000 mls @ 125 mls/hr IV ASDIRECTED [facility] Thiamine HCl 100 mg/ Sodium (Chloride) 51 mls @ 100 mls/hr IV DAILY [facility] Potassium Chloride/Sodium Chloride (Normal Saline With 20 Meq Kcl) 1,000 mls @ 75 mls/hr IV ASDIRECTED [facility] Last Admin: 04/04/17 04:38 Dose: 75 mls/hr Thiamine HCl 100 mg/ Sodium (Chloride) 51 mls @ 100 mls/hr IV DAILY [facility] Last Admin: 04/04/17 09:24 Dose: 100 mls/hr Sodium Chloride (Normal Saline) 1,000 mls @ 50 mls/hr IV ASDIRECTED [facility] Last Admin: 04/05/17 08:17 Dose: 50 mls/hr Influenza Virus Vaccine (Pharmacy To Dose - Influenza Vaccine) 1 each IM ONETIME ONE Stop: 04/03/17 10:24 Influenza Virus Vaccine (Fluzone Quad [id number]) 60 mcg IM .ONCE ONE Stop: 04/03/17 10:31 Last Admin: 04/03/17 11:32 Dose: 60 mcg Iopamidol (Isovue-370 (76%)) 100 ml IV . DIRECTED ONE Stop: 04/03/17 06:33 Last Admin: 04/03/17 06:47 Dose: 100 ml Lisinopril (Prinivil) Confirm Administered Dose 40 mg .ROUTE .STK-MED ONE Stop: 04/03/17 12:29 Last Admin: 04/03/17 12:40 Dose: 40 mg Lorazepam (Ativan) 1 mg IVPUSH NOW STA Stop: 04/03/17 16:01 Last Admin: 04/03/17 16:30 Dose: 1 mg Lorazepam (Ativan) 0.5 mg IVPUSH ONETIME ONE Stop: 04/04/17 07:22 Last Admin: 04/04/17 08:12 Dose: 0.5 mg Morphine Sulfate (Morphine) 5 mg IVPUSH ONETIME ONE Stop: 04/03/17 06:13 Last Admin: 04/03/17 06:16 Dose: 5 mg Multivitamins/Minerals/Vitamin C (Tab-A-Mei) 1 tab PO ONETIME ONE Stop: 04/03/17 15:46 Last Admin: 04/03/17 16:29 Dose: 1 tab Pantoprazole Sodium (Protonix Iv) 40 mg IVPUSH ONETIME ONE Stop: 04/03/17 15:44 Last Admin: 04/03/17 16:11 Dose: 40 mg Potassium Phos/Sodium Phos (Phos-Nak Powder) 3 each PO QID [facility] Stop: 04/04/17 21:01 Last Admin: 04/04/17 21:09 Dose: 3 packet Sodium Chloride (Saline Flush) 10 ml FLUSH ASDIRECTED PRN PRN Reason: Keep Vein Open *Q Meaningful Use (DIS) - VTE *Q VTE Criteria *Q: - Stroke *Q Stroke Criteria *Q: - AMI *Q AMI Criteria *Q:
[2017-04-06 15:26] VITALS: BP 126/83
== END 2017-04-06 12:25 | disposition home or self-care (01) | DRG 439 ==
LOC: FB.ED 05:06 → FB.MS 09:08 → FB.ICU 14:45 → FB.MS 04-05 09:28
PROVIDERS: ADMIT Emergency Medicine; ATTEND Family Medicine
DX: K85.20 Alcohol induced acute pancreatitis without necrosis or infection (principal); G40.89 Other seizures; F10.239 Alcohol dependence with withdrawal, unspecified; E87.1 Hypo-osmolality and hyponatremia; Y90.0 Blood alcohol level of less than 20 mg/100 ml; I10 Essential (primary) hypertension; Z23 Encounter for immunization; E78.00 Pure hypercholesterolemia, unspecified; K21.9 Gastro-esophageal reflux disease without esophagitis; Z87.891 Personal history of nicotine dependence; R79.89 Other specified abnormal findings of blood chemistry; E87.6 Hypokalemia; E83.39 Other disorders of phosphorus metabolism; R16.0 Hepatomegaly, not elsewhere classified; I69.998 Other sequelae following unspecified cerebrovascular disease
CPT/HCPCS: 36415; 74177; 76705; 80053; 81001; 82150; 82962; 83690; 83735; 84100; 84484; 85025; 85610; 90686; 93005; 96361; 96374; 96375; 99223; 99231; 99239; 99285; A9270-GY; C9113; G0008; G0480; J1170; J1650; J2060; J2270; J2405; J3411; J3480; J7030; J7040; J7050; Q9967